=== PATIENT | female | born 1960 | race Caucasian/White ===

== ENCOUNTER 2022-07-09 12:56 | Emergency (ER) | payer OTHER ==
[~2022-07-09] VITALS: Ht 165.1 cm; Wt 61.2 kg
--- NOTE | 2022-07-09 13:09 | NUR ---
Pt called for triage no answer. Went outside to front doors no answer.
--- NOTE | 2022-07-09 13:09 | NUR ---
PATIENT LEFT WITHOUT BEING SEEN BY DR. NORMAN. NO FURTHER CARE PROVIDED FOR PATIENT.
--- NOTE | 2022-07-09 13:16 | NUR ---
Pt called for triage no answer. Went out to see in front lobby no answer.
[2022-07-09] MEDS ORDERED: NACL 0.9% 1,000 ML IV SCH (13:20)
[2022-07-09 14:09] VITALS: BP 123/82
--- NOTE | 2022-07-09 14:46 | NUR ---
DR BRODERICK AT BEDSIDE FOR EVALUATION
--- NOTE | 2022-07-09 14:50 | NUR ---
62 y/o female bib self after referral from Adry Doty MD. States she was seen by PCP 1+ week ago for recurrent UTIs. States she completed abx course 2 days ago. Denies urinary symtoms or pain at this time. Denies fever, chills, nvd, dysuria. all: cipro PMH: arthritis
--- NOTE | 2022-07-09 15:54 | NUR ---
AMBULATED TO RESTROOM WITH STEADY GAIT
--- NOTE | 2022-07-09 16:59 | NUR ---
lab at bedside
[2022-07-09 17:05] LABS: APPEARANCE,URINE CLOUDY (CLEAR); BILIRUBIN,URINE NEGATIVE (NEGATIVE); BLOOD, URINE NEGATIVE (NEGATIVE); COLOR,URINE AMBER (YELLOW); LEUKOCYTE ESTERASE ,URINE NEGATIVE (NEGATIVE); NITRITE, URINE NEGATIVE (NEGATIVE); UGLUCOSE NEGATIVE (NEGATIVE)
[2022-07-09 17:07] LABS: BASOPHILS % (AUTO) 0.6 % (0.0-2.0); EOSINOPHILS # (AUTO) 0.1 K/uL (0-0.4); EOSINOPHILS % (AUTO) 1.4 % (0.0-4.0); HEMOGLOBIN 13.2 g/dL (12.0-16.0); LYMPHOCYTES # (AUTO) 2.1 K/uL (2.5-16.5); LYMPHOCYTES % (AUTO) 28.3 % (20.5-51.1); MEAN CORPUSCULAR HEMOGLOBIN 32 pg (27-31); MEAN CORPUSCULAR HGB CONC 34 g/dL (33-37); MEAN CORPUSCULAR VOLUME 93.3 fL (80-94); MONOCYTES # (AUTO) 0.5 K/uL (0.8-1.0); NEUTROPHILS # (AUTO) 4.7 K/uL (1.8-7.7); NEUTROPHILS % (AUTO) 62.7 % (42.2-75.2); PLATELET COUNT (AUTO) 259 K/uL (140-450); RED BLOOD CELL COUNT(AUTO) 4.18 MIL/uL (4.20-5.40); RED CELL DISTRIBUTION WIDTH 13.5 % (11.6-13.7); WHITE BLOOD COUNT (AUTO) 7.4 K/uL (4.8-10.8)
[2022-07-09 17:20] LABS: PROTHROMBIN TIME 9.7 secs (10.8-13.4)
[2022-07-09 17:21] LABS: ALBUMIN 3.4 g/dL (3.4-5.0); ANION GAP 11.1 (8-16); CARBON DIOXIDE 25.4 mmol/L (21-32); CREATININE 0.8 mg/dL (0.6-1.3); POTASSIUM 3.5 mmol/L (3.5-5.1); TOTAL BILIRUBIN 0.5 mg/dL (0.0-1.0)
--- NOTE | 2022-07-09 17:30 | NUR ---
pt resting in bed, denies pain or discomfort. All needs met at this time. Bed in low, call light in reach.
[2022-07-09 17:48] VITALS: BP 117/78
--- NOTE | 2022-07-09 17:48 | NUR ---
Patient discharged with v/s stable. Written and verbal after care instructions given and explained. Patient verbalized understanding. Ambulatory with steady gait. All questions addressed prior to discharge. Advised to follow up with PMD.
== END 2022-07-09 17:48 | disposition home or self-care (01) ==
LOC: MED 12:56
DX: R39.15 Urgency of urination (principal)
CPT/HCPCS: 36415; 80053; 81003; 83605; 85025; 85610; 85730; 87040; 87086; 96360; 99283